=== PATIENT | male | born 1985 | race Caucasian/White ===

== ENCOUNTER 2021-03-29 18:23 | Emergency (ER) | payer OTHER ==
[2021-03-29 20:02] LABS: BASOPHIL 0.3 % (0-2); EOSINOPHIL 2.1 % (0-5); HCT 39.3 % (42.0-52.0); HGB 13.6 g/dl (13.2-18.0); LYMPHOCYTE 31.7 % (15-48); MCH 31.3 pg (25.0-31.0); MCHC 34.6 g/dL (32.0-36.0); MCV 90.3 fL (78.0-100.0); MONOCYTE 7.4 % (0-12); MPV 8.7 fL (6.0-9.5); NEUTROPHIL 58.4 % (41-80); NRBC 0; PLT 290 K/uL (150-400); RBC 4.35 M/uL (4.70-6.00); RDW 12.2 % (11.5-14.0); WBC 7.1 K/uL (4.0-10.5)
[2021-03-29 20:11] LABS: ALBUMIN 4.5 g/dL (3.4-5.0); BILIRUBIN - TOTAL 0.3 mg/dL (0.2-1.0); BUN/CREAT RATIO (CALC) 20.6 RATIO; CREATININE 1.07 mg/dL (0.67-1.17); GLOBULIN (CALCULATION) 3.9 g/dL; TOTAL PROTEIN 8.4 g/dL (6.4-8.2)
[2021-03-29 20:28] LABS: BILIRUBIN NEGATIVE (NEGATIVE); BLOOD NEGATIVE Ery/uL (NEGATIVE); CLARITY CLEAR (CLEAR); COLOR YELLOW (YELLOW); GLUCOSE (U) NORMAL (NORMAL); LEUKOCYTES NEGATIVE Leu/uL (NEGATIVE); NITRITE NEGATIVE (NEGATIVE); PROTEIN NEGATIVE (NEGATIVE); SPECIFIC GRAVITY >=1.030 (1.001-1.030); UROBILINOGEN 0.2 mg/dL (0.2-1.0)
[2021-03-29 20:36] LABS: SQUAMOUS EPITHELIAL CELLS RARE; URINARY RBC RARE; URINARY WBC RARE
[2021-03-29 20:37] LABS: CALCIUM OXALATE CRYSTALS TRACE; MUCOUS TRACE
[2021-03-29] MEDS ORDERED: METRONIDAZOLE500 MG PO (21:07)
[2021-03-29] MEDS ORDERED: CIPRO500 MG PO (21:07)
== END 2021-03-29 21:30 | disposition home or self-care (01) ==
LOC: FER 18:23
PROVIDERS: Physician Assistant
DX: K52.9 Noninfective gastroenteritis and colitis, unspecified (principal); F17.290 Nicotine dependence, other tobacco product, uncomplicated; Z88.6 Allergy status to analgesic agent; Z88.0 Allergy status to penicillin; Z88.8 Allergy status to other drugs, medicaments and biological substances
CPT/HCPCS: 36415; 80053; 81001; 85025; J2270; J2405; J7030